=== PATIENT | female | born 1975 | race African-American/Black ===

== ENCOUNTER 2022-08-28 19:13 | Emergency (ER) | payer OTHER, SELFPAY ==
[2022-08-28 19:18] VITALS: BP 155/100; PULSE 91; RESP 15; TEMP 36.4; O2SAT 97; BMI 27.1
--- NOTE | 2022-08-28 19:23 | DI.RAD.S_ITS ---
PROCEDURE: XR CHEST 2V INDICATIONS: SOB TECHNIQUE: 2 views of the chest were acquired. COMPARISON: None. FINDINGS: Surgical changes and devices: None. Lungs and pleura: Lungs are clear. No pleural effusions or pneumothorax. Mediastinum: Mediastinal contours are normal. Heart size is normal. Bones and chest wall: No suspicious bony abnormalities. Soft tissues appear unremarkable. IMPRESSION: No acute cardiopulmonary pathology. Dictated by: Shilo Hsu M.D. on 08/28/2022 at 20:10 Approved by: Shilo Hsu M.D. on 08/28/2022 at 20:10
--- NOTE | 2022-08-28 19:25 | ED.GENADULT ---
HPI - General Adult General Chief complaint: Shortness of Breath/Dyspnea Stated complaint: SOB, back pain, OD 3wks ago Time Seen by Provider: 08/28/22 19:15 History of Present Illness HPI narrative: 47-year-old female smoker, former drinker with history of cocaine use presents with her mother and a chief complaint of a relatively sudden onset right upper back pain that is sharp and stabbing. She denies any recent injury and states that she noted it this afternoon while trying to take a shower. She states it is a sharp and stabbing pain just below her right shoulder blade that is made worse by taking a deep breath, moving her torso and use of her right arm. She denies any radiation of this discomfort. She denies any fever or chills. She has no headache or blurred vision nor runny nose, sore throat or cough. She denies nausea, vomiting or diarrhea. She denies any exertional symptoms. She does admit to being SOB, but states it is only because it hurts to breathe. She historically uses cocaine with alcohol but states she had been laced with fentanyl a few weeks ago which resulted in an OD that required two rounds of CPR and subsequent hospitalization at [facility] in [place] (records requested) Related Data Previous Rx's Medication Instructions Recorded VIT#96/FERROUS FUM/FA 1 tab PO Q DAY ##90 05/16/12 ( Tablet) ibuprofen 800 mg tablet 800 mg PO TID PRN ##30 07/16/12 sertraline 50 mg tablet (Zoloft) 50 mg PO QDAY ##30 08/11/12 Norethindrone (#MICRONOR) 0.35 mg PO Q DAY ##3 11/13/12 ketorolac 10 mg tablet 10 mg PO Q6H PRN pain #14 tabs 08/28/22 lidocaine 5 % topical patch 1 patch topical DAILY #15 ea 08/28/22 (Lidoderm) Allergies Allergy/AdvReac Type Severity Reaction Status Date / Time latex Allergy Unknown RASH Verified 08/28/22 19:23 Review of Systems Review of Systems Narrative: GENERAL: Denies chills, fatigue, malaise, fever, sweats. HEENT: Denies sinus pain, ear pain, sore throat, difficulty swallowing, dizziness. RESPIRATORY: see HPI CARDIOVASCULAR: Denies chest pain, palpitations, orthopnea, edema, GASTROINTESTINAL: Denies nausea, vomiting, abdominal pain, diarrhea, constipation, melena. : Denies dysuria, frequency, incontinence, hematuria, urinary retention. MUSCULOSKELETAL: see HPI SKIN: Denies rash, skin lesions, or other NEUROLOGIC: Denies weakness, headache, numbness, change in speech, confusion, seizures, incoordination. PSYCHIATRIC: No concerning psychosocial issues. Patient History Social History Smoking Status: Unknown if ever smoked Exam Narrative Exam Narrative: GENERAL: [47] year old patient appears stated age. Well-developed patient, in mild distress. HEAD: Atraumatic. Normocephalic. EYES: Pupils equal round and reactive. Extraocular motions intact. No scleral icterus. No injection or drainage. ENT: Nose without bleeding, purulent drainage. Throat without erythema, tonsillar hypertrophy or exudate. Airway patent. NECK: Trachea midline. Non tender CARDIOVASCULAR: Regular rate and rhythm without murmurs, gallops, or rubs. RESPIRATORY: Clear to auscultation. Breath sounds equal bilaterally. No wheezes, rales, or rhonchi. GASTROINTESTINAL: Abdomen soft, non-tender, nondistended. EXTREMITIES: No edema or joint tenderness. BACK: Paraspinal muscles spasm palpated in right upper thoracic region just inferior to scapula, palpation of this worsens the pain that brought patient in, no swelling, erythema or fluctuance noted NEURO: AOx3. SKIN: No rash or erythema of visible areas Initial Vital Signs Initial Vital Signs: Vital Signs Temperature 97.5 F L 08/28/22 19:18 Pulse Rate 91 H 08/28/22 19:18 Respiratory Rate 15 08/28/22 19:18 Blood Pressure 155/100 H 08/28/22 19:18 Pulse Oximetry 97 08/28/22 19:18 Oxygen Delivery Method 08/28/22 19:18 Course Orders Ordered: ED Orders 08/28/22 19:23 XR chest 2V Stat 08/28/22 19:31 Complete Blood Count AUTO DIFF Stat Comprehensive Metabolic Panel Stat D Dimer Stat Lipase Stat Magnesium Stat NT-proBNP (BNP-Adult 18+) Stat Prothrombin Time INR Stat Troponin & CK Cardiac Panel Stat Discontinued Medications Ketorolac Tromethamine (Ketorolac 30 Mg/Ml Vial) 15 mg IV NOW ONE Stop: 08/28/22 19:23 Last Admin: 08/28/22 19:31 Dose: 15 mg Documented By: AP Lidocaine (Lidocaine Patch 1 Each Adh..Patch) 1 each TOP NOW ONE Stop: 08/28/22 20:20 Last Admin: 08/28/22 20:45 Dose: 1 each Documented By: BS Reevaluation(s) Reevaluation #1: Significant improvement after Toradol alone, Lidoderm ordered Reevaluation #2: Continued improvement if not complete resolution symptoms after application of Lidoderm Vital Signs Vital signs: Vital Signs - 8 hr 08/28/22 19:18 08/28/22 21:08 Temperature 97.5 F L 98.2 F Pulse Rate 91 H 82 Respiratory Rate 15 19 Blood Pressure 155/100 H 142/83 H Pulse Oximetry 97 100 Oxygen Delivery Method Room Air Room Air Medical Decision Making Lab Data 08/28/22 19:31 08/28/22 19:31 Labs: Lab Results 08/28/22 08/28/22 08/28/22 Range/Units 19:31 19:31 19:31 WBC 8.8 (4.5-11.0) X10^3/uL RBC 4.40 (4.0-5.2) X10^6/uL Hgb 13.5 (12.0-16.0) g/dL Hct 39.6 (36-46) % MCV 89.9 (80-100) fL MCH 30.7 (26-34) PG MCHC 34.1 (30-36) % RDW 13.8 (11.6-14.8) % Plt Count 295 (150-400) X10^3/uL Neut % (Auto) 78.3 H (50-75) % Lymph % (Auto) 15.3 L (25-40) % [place] % (Auto) 4.8 (3-14) % Eos % (Auto) 0.8 L (2-4) % Baso % (Auto) 0.8 (0-2) % Neut # (Auto) 6900 (2057-5316) /uL Lymph # (Auto) 1300 (6349-1101) /uL [place] # (Auto) 400 (0-900) /uL Eos # (Auto) 100 (0-450) /uL Baso # (Auto) 100 (0-100) /uL PT 12.3 (10.1-12.7) SECONDS INR 1.1 (0.9-1.3) D-Dimer 419 (<500) ng/ml Sodium (137-145) mmol/L Potassium (3.4-5.1) mmol/L Chloride (98-107) mmol/L Carbon Dioxide (22-32) mmol/L BUN (7-17) mg/dL Creatinine (0.52-1.04) mg/dL Estimated GFR (>60) mL/min BUN/Creatinine Ratio (6-22) Glucose (70-100) mg/dL Calcium (8.4-10.2) mg/dL Magnesium (1.6-2.3) mg/dL Total Bilirubin (0.2-1.3) mg/dL AST (14-36) IU/L ALT (<35) IU/L Alkaline Phosphatase (38-126) U/L Total Creatine Kinase (30-135) U/L CK-MB (CK-2) CK-MB (CK-2) Rel Index Troponin I (0.01-0.034) ng/mL NT-Pro-B Natriuret Pep (<125) pg/mL Total Protein (6.3-8.2) g/dL Albumin (3.5-5.0) g/dL Globulin (1.7-4.1) g/dL Albumin/Globulin Ratio (1.0-2.8) Lipase (23-300) U/L 08/28/22 Range/Units 19:31 WBC (4.5-11.0) X10^3/uL RBC (4.0-5.2) X10^6/uL Hgb (12.0-16.0) g/dL Hct (36-46) % MCV (80-100) fL MCH (26-34) PG MCHC (30-36) % RDW (11.6-14.8) % Plt Count (150-400) X10^3/uL Neut % (Auto) (50-75) % Lymph % (Auto) (25-40) % [place] % (Auto) (3-14) % Eos % (Auto) (2-4) % Baso % (Auto) (0-2) % Neut # (Auto) (6779-4758) /uL Lymph # (Auto) (9571-4237) /uL [place] # (Auto) (0-900) /uL Eos # (Auto) (0-450) /uL Baso # (Auto) (0-100) /uL PT (10.1-12.7) SECONDS INR (0.9-1.3) D-Dimer (<500) ng/ml Sodium 141 (137-145) mmol/L Potassium 3.8 (3.4-5.1) mmol/L Chloride 107 (98-107) mmol/L Carbon Dioxide 21 L (22-32) mmol/L BUN 11 (7-17) mg/dL Creatinine 0.83 (0.52-1.04) mg/dL Estimated GFR > 60 (>60) mL/min BUN/Creatinine Ratio 13.3 (6-22) Glucose 62 L (70-100) mg/dL Calcium 9.0 (8.4-10.2) mg/dL Magnesium 2.1 (1.6-2.3) mg/dL Total Bilirubin 0.4 (0.2-1.3) mg/dL AST 19 (14-36) IU/L ALT 28 (<35) IU/L Alkaline Phosphatase 105 (38-126) U/L Total Creatine Kinase 46 (30-135) U/L CK-MB (CK-2) TNP CK-MB (CK-2) Rel Index TNP Troponin I < 0.012 (0.01-0.034) ng/mL NT-Pro-B Natriuret Pep 35 (<125) pg/mL Total Protein 8.0 (6.3-8.2) g/dL Albumin 4.2 (3.5-5.0) g/dL Globulin 3.8 (1.7-4.1) g/dL Albumin/Globulin Ratio 1.1 (1.0-2.8) Lipase 47 (23-300) U/L Imaging Data Chest x-ray: Radiologist's Impression: [address] [address] XRay Report Signed Patient: Julianne Gilliland MR#: [id number] : 1975 Acct:[id number] Age/Sex: 47 / F Date of Service: 08/28/22 Loc: ED Accession Number: [id number] ?? Procedure: XR chest 2V Ordering Provider: Jean Dunn D.O. PROCEDURE:? XR CHEST 2V ? INDICATIONS:? SOB ? TECHNIQUE:? 2 views of the chest were acquired.? ? COMPARISON:? None. ? FINDINGS:? ? Surgical changes and devices:? None.? ? Lungs and pleura:? Lungs are clear.? No pleural effusions or pneumothorax.? ? Mediastinum:? Mediastinal contours are normal.? Heart size is normal.? ? Bones and chest wall:? No suspicious bony abnormalities.? Soft tissues appear unremarkable.? ? IMPRESSION:? No acute cardiopulmonary pathology. ? ? Dictated by: Shilo Hsu M.D. on 08/28/2022 at 20:10 ? ? Approved by: Shilo Hsu M.D. on 08/28/2022 at 20:10 ? MDM Narrative Medical decision making narrative: [47-year-old female with sharp, stabbing reproducible right upper thoracic pain] Multiple etiologies for patient's symptoms considered including, but not limited to: [Musculoskeletal, rib fracture, pneumothorax versus other] Prior Charts reviewed: Prior ED visits evaluated Labs reviewed and interpreted by myself: No significant abnormal findings, notably no leukocytosis or left shift, no evidence of anemia, electrolytes and kidney function within normal, D-dimer below cutoff for pulmonary embolism evaluation, troponin negative Imaging reviewed: Chest x-ray without evidence rib fracture, pneumothorax, pneumonia or pulmonary contusion Patient's symptoms improved over duration of stay with above-stated therapies. Patient had a palpable, reproducible sharp and stabbing pain in right upper back consistent with muscle spasm and inflammation, she had significant improvement with Toradol and Lidoderm. There is no evidence of rib fracture, pneumonia or pneumothorax, PE considered but D-dimer is below cutoff. Findings and discharge diagnosis discussed with patient/family followed by verbalization of understanding Return precautions discussed with patient/family whom verbalize understanding of diagnosis and plan Discharge Plan Departure Patient Disposition: Home Clinical Impression: Spasm of thoracic back muscle Instructions: DI for Thoracic Back Pain Activity Restrictions/Additional Instructions: *You have been diagnosed with [thoracic back spasm. As we discussed your history and physical exam are reassuring as are your labs and x-ray. There is no evidence of collapsed lung, blood clot, heart attack or broken rib.] *What to do: *Please continue to take your regular medications as directed. [ x] New medication prescriptions sent to your pharmacy: [ [facility] in [place]] [ ] New medication written as a paper prescription [ ] No new medications given *Please follow up with your primary care provider in 2-3 days, call for an appointment. Let them know you were seen in the Emergency Department and that we ask that you be seen in follow up. We will electronically transmit a record of today's note if your PCP is in our system *If you do not have a primary care provider please contact the [facility] Resource line at [phone]. They will ask some questions about your medical history and help get you set up with a doctor in the community. *Return to Emergency Department if you should have any new, worsening or concerning symptoms, such as [fever greater than 101 F, shaking chills, worsening pain, persistent vomiting or other bothersome symptoms] Prescriptions: New ketorolac 10 mg tablet 10 mg PO Q6H PRN (Reason: pain) Qty: 14 0RF lidocaine [Lidoderm] 5 % adhesive patch,medicated 1 patch TOP DAILY Qty: 15 0RF Rx Instructions: leave on most painful area for 12 hrs No Action VIT#96/FERROUS FUM/FA ( Tablet) 1 tab PO Q DAY Qty: 90 3RF ibuprofen 800 MG tablet 800 mg PO TID PRN Qty: 30 3RF sertraline [Zoloft] 50 MG tablet 50 mg PO QDAY Qty: 30 3RF Norethindrone (#MICRONOR) 0.35 mg PO Q DAY Qty: 3 10RF Stand Alone Forms: Patient Portal/API
[2022-08-28] MEDS: KETOROLAC 30 MG/ML VIAL 15 MG IV (19:31)
[2022-08-28 19:42] LABS: Add Manual Diff / Slide Review NO; Basophils Absolute Auto 100 /uL (0-100); Basophils Percent Auto 0.8 % (0-2); Eosinophils Absolute Auto 100 /uL (0-450); Eosinophils Percent Auto 0.8 % (2-4); Hematocrit 39.6 % (36-46); Hemoglobin 13.5 g/dL (12.0-16.0); Lymphocytes Absolute Auto 1300 /uL (1100-4500); Lymphocytes Percent Auto 15.3 % (25-40); Mean Corpuscular HGB Conc 34.1 % (30-36); Mean Corpuscular Hemoglobin 30.7 PG (26-34); Mean Corpuscular Volume 89.9 fL (80-100); Monocytes Absolute Auto 400 /uL (0-900); Monocytes Percent Auto 4.8 % (3-14); Neutrophils Absolute Auto 6900 /uL (1500-7000); Neutrophils Percent Auto 78.3 % (50-75); Platelet Count 295 X10^3/uL (150-400); Red Cell Distribution Width 13.8 % (11.6-14.8); White Blood Cell Count 8.8 X10^3/uL (4.5-11.0)
[2022-08-28 19:54] LABS: INR 1.1 (0.9-1.3); Prothrombin Time 12.3 SECONDS (10.1-12.7)
[2022-08-28 19:56] LABS: Alanine Aminotransferase 28 IU/L (<35); Albumin 4.2 g/dL (3.5-5.0); Albumin Globulin Ratio 1.1 (1.0-2.8); Alkaline Phosphatase 105 U/L (38-126); Aspartate Aminotransferase 19 IU/L (14-36); BUN Creatinine Ratio 13.3 (6-22); Bilirubin Total 0.4 mg/dL (0.2-1.3); Blood Urea Nitrogen 11 mg/dL (7-17); Carbon Dioxide 21 mmol/L (22-32); Chloride 107 mmol/L (98-107); Creatine Kinase 46 U/L (30-135); Estimated Glomerular Filt Rate > 60 mL/min (>60); Globulin 3.8 g/dL (1.7-4.1); Glucose 62 mg/dL (70-100); HEMOLYSIS < 15 (0-50); Lipase 47 U/L (23-300); Magnesium 2.1 mg/dL (1.6-2.3); Potassium 3.8 mmol/L (3.4-5.1); Sodium 141 mmol/L (137-145)
[2022-08-28 20:03] LABS: D Dimer 419 ng/ml (<500)
[2022-08-28 20:07] LABS: NT-proBNP (BNP-Adult 18+) 35 pg/mL (<125); Troponin I < 0.012 ng/mL (0.01-0.034)
[2022-08-28] MEDS: LIDOCAINE PATCH 1 EACH ADH..PATCH TOP (20:45)
[2022-08-28 21:08] VITALS: BP 142/83; PULSE 82; RESP 19; TEMP 36.8; O2SAT 100
== END 2022-08-28 21:09 | disposition home or self-care (01) ==
PROVIDERS: Emergency Provider Emergency Medicine
DX: M54.6 Pain in thoracic spine (principal)
CPT/HCPCS: 36415; 71046; 80053; 82550; 83690; 83735; 83880; 84484; 85025; 85379; 85610; 96374; 99284; J1885

== ENCOUNTER 2023-02-04 12:41 | Emergency (ER) | payer OTHER, SELFPAY ==
[2023-02-04 12:45] VITALS: BP 124/76; PULSE 99; RESP 16; TEMP 36.2; O2SAT 96; BMI 31.1
--- NOTE | 2023-02-04 12:51 | DI.RAD.S_ITS ---
PROCEDURE: XR ANKLE RT MIN 3V INDICATIONS: fall off a loading dock ramp/swelling bruising TECHNIQUE: 3 views of the ankle were acquired. COMPARISON: None. FINDINGS: Bones: No fractures or dislocations. Ankle mortise is normally aligned. No suspicious bony lesions. Soft tissues: No tibiotalar joint effusion. Achilles tendon appears normal. IMPRESSION: No evidence acute bony abnormality. If clinical suspicion and/or symptoms persist, further assessment with repeat plain films, or advanced imaging (e.g., CT, MRI, or bone scan) may be helpful for further assessment. Dictated by: Cristofer Cruz M.D. on 02/04/2023 at 13:50 Approved by: Cristofer Cruz M.D. on 02/04/2023 at 13:52
[2023-02-04] MEDS: IBUPROFEN 400 MG TABLET 800 MG PO (12:53)
--- NOTE | 2023-02-04 16:46 | ED_ITS ---
HPI - Extremity Injury (Lower) <Sierra Panda PA-C - Last Filed: 02/04/23 16:51> General Chief Complaint: Extremity Injury, Lower Stated Complaint: fell off loading dock at work Time Seen by Provider: 02/04/23 14:22 History of Present Illness HPI Narrative: 47-year-old female presents to the ED status post a right ankle injury sustained at work just prior to arrival. 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 Patient endorses pain to the lateral and medial aspect of the ankle, has not been able to bear weight and walk due to pain. No numbness, tingling, weakness. Related Data Previous Rx's Medication Instructions Recorded VIT#96/FERROUS FUM/FA 1 tab PO Q DAY ##90 05/16/12 ( Tablet) ibuprofen 800 mg tablet 800 mg PO TID PRN ##30 07/16/12 sertraline 50 mg tablet (Zoloft) 50 mg PO QDAY ##30 08/11/12 Norethindrone (#MICRONOR) 0.35 mg PO Q DAY ##3 11/13/12 ketorolac 10 mg tablet 10 mg PO Q6H PRN pain #14 tabs 08/28/22 lidocaine 5 % topical patch 1 patch topical DAILY #15 ea 08/28/22 (Lidoderm) Allergies Allergy/AdvReac Type Severity Reaction Status Date / Time latex Allergy Unknown RASH Verified 08/28/22 19:23 Review of Systems <Sierra Panda PA-C - Last Filed: 02/04/23 16:51> Review of Systems ROS Unobtainable: All systems reviewed & are unremarkable except as noted in HPI and below Constitutional Constitutional: Denies chills, Denies fatigue, Denies fever(s), Denies frequent falls, Denies lethargy and Denies weakness Eyes Eyes: Denies change in vision, Denies eye discharge, Denies irritation and Denies loss of vision ENT Ears, Nose, Mouth, and Throat: Denies change in voice, Denies dizziness, Denies neck pain, Denies sore throat and Denies throat swelling Cardiovascular Cardiovascular: Denies chest pain, Denies irregular heart rhythm, Denies lightheadedness, Denies palpitations, Denies dyspnea, Denies dyspnea on exertion and Denies orthopnea Respiratory Respiratory: Denies cough, Denies dyspnea, Denies dyspnea on exertion and Denies wheezing Gastrointestinal Gastrointestinal: Denies abdominal pain, Denies change in bowel habits, Denies diarrhea, Denies nausea and Denies vomiting Genitourinary Genitourinary: Denies hematuria, Denies flank pain, Denies urinary incontinence and Denies urinary urgency Musculoskeletal Musculoskeletal: Denies back pain, Denies muscle weakness, Denies neck pain, Denies numbness and Denies tingling Comments: Right ankle pain Integumentary/Breasts Skin/Breast: Denies pruritus, Denies erythema, Denies rash and Denies wounds Neurologic Neurologic: Denies behavioral changes, Denies confusion, Denies dizziness, Denies frequent falls, Denies loss of vision, Denies numbness, Denies tingling and Denies weakness Psychiatric Psychiatric: Denies anxiety, Denies behavioral changes, Denies confusion, Denies depression, Denies homicidal ideation and Denies suicidal ideation Endocrine Endocrine: Denies fatigue, Denies flushing and Denies palpitations Hematologic/Lymphatic Hematologic/Lymphatic: Denies easy bruising Allergic/Immunologic Allergic/Immunologic: Denies urticaria, Denies throat swelling and Denies wheezing Patient History <Sierra Panda PA-C - Last Filed: 02/04/23 16:51> Social History Smoking Status: Unknown if ever smoked Smoking Status: Unknown if ever smoked alcohol intake frequency: other Substance Use Type: former substance user Exam <Sierra Panda PA-C - Last Filed: 02/04/23 16:51> Narrative Exam Narrative: Const General:?cooperative, healthy appearing and comfortable [facility] Head:?normal to inspection Ears:?hearing grossly normal bilaterally Nose:?external nose normal Face and sinus:?normal facial exam and sinuses nontender Mouth:?oral mucosae normal Throat:?posterior oropharynx normal Eyes General:?appearance normal, both eyes and all related structures Neck Neck:?normal visual inspection and no lymphadenopathy noted Resp Effort & Inspection:?normal respiratory effort Auscultation:?clear to auscultation bilaterally Cardio Rate:?regular rate Rhythm:?regular rhythm Musculoskeletal Right ankle appears swollen, tender to touch on the medial and lateral aspects. There is full range of motion. Strength and sensation is intact. Patient is neurovascularly intact. No bruising. No tenderness to palpation of the base of the 5th metatarsal or base of the 2nd metatarsal. No foot tenderness. Neuro General:?patient alert, patient awake and patient oriented x3 Initial Vital Signs Initial Vital Signs: Vital Signs Temperature 97.1 F L 02/04/23 12:45 Pulse Rate 99 H 02/04/23 12:45 Respiratory Rate 16 02/04/23 12:45 Blood Pressure 124/76 02/04/23 12:45 Pulse Oximetry 96 02/04/23 12:45 Oxygen Delivery Method Room Air 02/04/23 12:45 <Denise Ramsey DO - Last Filed: 02/05/23 08:41> Initial Vital Signs Initial Vital Signs: Vital Signs Temperature 97.1 F L 02/04/23 12:45 Pulse Rate 99 H 02/04/23 12:45 Respiratory Rate 16 02/04/23 12:45 Blood Pressure 124/76 02/04/23 12:45 Pulse Oximetry 96 02/04/23 12:45 Oxygen Delivery Method Room Air 02/04/23 12:45 Course <Sierra Panda PA-C - Last Filed: 02/04/23 16:51> Orders Ordered: Discontinued Medications Ibuprofen (Ibuprofen 400 Mg Tablet) 800 mg PO NOW ONE Stop: 02/04/23 12:53 Last Admin: 02/04/23 12:53 Dose: 800 mg Documented By: CTS Vital Signs Vital signs: Vital Signs - 8 hr 02/04/23 12:45 Temperature 97.1 F L Pulse Rate 99 H Respiratory Rate 16 Blood Pressure 124/76 Pulse Oximetry 96 Oxygen Delivery Method Room Air <DO Sri Subramanian Last Filed: 02/05/23 08:41> Orders Ordered: Discontinued Medications Ibuprofen (Ibuprofen 400 Mg Tablet) 800 mg PO NOW ONE Stop: 02/04/23 12:53 Last Admin: 02/04/23 12:53 Dose: 800 mg Documented By: CTS Vital Signs Vital signs: Vital Signs - 8 hr 02/04/23 12:45 Temperature 97.1 F L Pulse Rate 99 H Respiratory Rate 16 Blood Pressure 124/76 Pulse Oximetry 96 Oxygen Delivery Method Room Air MDM - Extremity Injury (Lower) <Sierra Panda PA-C - Last Filed: 02/04/23 16:51> MDM Narrative Medical decision making narrative: 47-year-old female presents to the ED status post a right ankle injury sustained at work just prior to arrival. Concern for fracture/dislocation versus ankle sprain/strain. Obtained x-ray which was without acute findings. There is no foot tenderness. Patient's symptoms are likely due to a musculoskeletal sprain/strain. Patient's ankle was wrapped with Kam wrap. Recommend RICE, ibuprofen. Recommend follow-up with PCP. ED return precautions were discussed with patient. Patient verbalized understanding. Medical records reviewed: Yes Discharge Plan Departure Patient Disposition: Home Clinical Impression: Ankle sprain and strain Instructions: DI for Ankle Sprain Activity Restrictions/Additional Instructions: You were evaluated in the ED today for a right ankle injury. Your x-ray does not show any fractures or dislocation. Your symptoms are likely due to a musculoskeletal sprain/strain. You may apply ice for the 1st 24 hours, followed by heat packs thereafter. You may keep your foot elevated above heart level to reduce swelling. You may also take ibuprofen 800 mg 3 times a day with food for the pain and swelling. Please follow-up with your PCP as soon as possible. Please return to the ED if you have worsening symptoms, numbness, tingling, weakness. Prescriptions: No Action VIT#96/FERROUS FUM/FA ( Tablet) 1 tab PO Q DAY Qty: 90 3RF ibuprofen 800 MG tablet 800 mg PO TID PRN Qty: 30 3RF sertraline [Zoloft] 50 MG tablet 50 mg PO QDAY Qty: 30 3RF Norethindrone (#MICRONOR) 0.35 mg PO Q DAY Qty: 3 10RF ketorolac 10 mg tablet 10 mg PO Q6H PRN (Reason: pain) Qty: 14 0RF lidocaine [Lidoderm] 5 % adhesive patch,medicated 1 patch TOP DAILY Qty: 15 0RF Rx Instructions: leave on most painful area for 12 hrs Referrals: Miscellaneous,Doctor, MD [Primary Care Provider] - Stand Alone Forms: Patient Portal/API <Denise Ramsey DO - Last Filed: 02/05/23 08:41> Cosign ED Attending María Elenaature Attestation: I was immediately available in the department for consultation. Documentation has been reviewed.
== END 2023-02-04 14:28 | disposition home or self-care (01) ==
PROVIDERS: Emergency Provider Student in an Organized Health Care Education/Training Program
DX: S93.401A Sprain of unspecified ligament of right ankle, initial encounter (principal); S96.911A Strain of unspecified muscle and tendon at ankle and foot level, right foot, initial encounter; W18.30XA Fall on same level, unspecified, initial encounter
CPT/HCPCS: 73610; 99283